=== PATIENT | male | born 1950 | race Caucasian/White ===

== ENCOUNTER 2020-04-22 16:05 | Outpatient (CLI) | payer MEDICARE, SELFPAY ==
--- NOTE | ~2020-04-22 | XR_ITS ---
EXAMINATION: XR cervical spine 4-5V DATE: 04/22/2020 16:39 INDICATION: Neck pain. Numbness and tingling down the left arm. TECHNIQUE: 4 views of cervical spine were obtained. COMPARISON: None. FINDINGS: There is 5 degrees levocurvature of cervicothoracic spine. Vertebral body heights are yvette l. There is moderately decreased disc height at C4-C5 and severely decreased disc height at C5-C6 and C6-C7. There is multilevel uncovertebral joint osteoarthritis, severe bilaterally at C4-C5 and C5-C6 . The uncovertebral joints are not well profiled at C6-C7. There is multilevel facet joint osteoarthr itis, moderate on the right at C3-C4. There is developmental osseous central canal stenosis from C3 t o C6. There is mild central canal stenosis at C4-C5, C5-C6, and C6-C7. No prevertebral soft tissue sw elling. IMPRESSION: 1. Severe cervical spondylosis. Reviewed, dictated and finalized at location A.
== END 2020-04-22 16:06 | disposition home or self-care (01) ==
PROVIDERS: PCP Family Medicine; Visit Provider Nurse Practitioner Family
DX: M47.892 Other spondylosis, cervical region (principal)
CPT/HCPCS: 72050

== ENCOUNTER 2020-04-23 08:53 | Outpatient (CLI) | payer MEDICARE, SELFPAY ==
[2020-04-23 09:33] LABS: Basophils Percent Auto 0.4 % (0.2-1.2); Eosinophils Absolute Auto 0.4 K/mm3 (0-0.3); Eosinophils Percent Auto 4.7 % (0-4.4); Hematocrit 39.9 % (42.0-52.0); Hemoglobin 13.1 g/dL (14.0-18.0); Immature Granulocyte Absolute 0.03 K/mm3 (0.00-0.031); Immature Granulocyte Percent A 0.4 % (0-0.5); Lymphocytes Absolute Auto 2.63 K/mm3 (0.9-3.2); Lymphocytes Percent Auto 35.6 % (18.3-44.2); Mean Corpuscular HGB Conc 32.8 g/dl (32-36); Mean Corpuscular Hemoglobin 31.4 pg (26-34); Mean Corpuscular Volume 95.7 fl (80-100); Mean Platelet Volume 11.1 fl (7.4-10.4); Monocytes Absolute Auto 0.6 K/mm3 (0.1-0.6); Monocytes Percent Auto 8.5 % (2.6-8.5); Neutrophils Absolute Auto 3.7 K/mm3 (1.3-6.7); Neutrophils Percent Auto 50.4 % (45.5-73.1); Platelet Count Result 242 k/mm3 (150-375); Red Blood Count 4.17 M/mm3 (4.6-6.20); Red Cell Distribution Width 13.6 % (11.5-14.5); White Blood Count 7.4 K/mm3 (4.5-10.0)
[2020-04-23 10:06] LABS: Alanine Aminotransferase 22 U/L (4-50); Alkaline Phosphatase 72 U/L (38-126); Aspartate Amino Transferase 22 U/L (17-59); Bilirubin,Total 0.2 mg/dL (0.2-1.3); Blood Urea Nitrogen 27 mg/dL (9-20); Calcium 8.9 mg/dL (8.4-10.2); Carbon Dioxide 27 mmol/L (22-30); Chloride 105 mmol/L (98-107); Cholesterol 160 mg/dL (0-200); Estimated Glomerular Filt Rate 55; Glucose 109 mg/dL (75-110); HDL Direct 33 mg/dL; LDL Cholesterol Direct 96 mg/dL; Potassium 4.3 mmol/L (3.4-5.0); Sodium 138 mmol/L (137-145); Triglycerides 209 mg/dL (<150)
[2020-04-23 10:13] LABS: Creatinine Urine 238.9 mg/dL
[2020-04-23 10:18] LABS: MALB Creatinine Ratio 7.5 mg/g (0-30)
[2020-04-23 10:28] LABS: Free T4 Free Thyroxine 0.71 ng/mL (0.78-2.19); Prostate Specific Antigen 1.8 ng/mL (< OR = 4.0); Total Triiodothyronine (T3) 1.15 NG/ML (0.97-1.69); Vitamin D 25 Hydroxy 33.6 ng/mL
== END 2020-04-23 08:54 | disposition home or self-care (01) ==
PROVIDERS: PCP Family Medicine; Visit Provider Nurse Practitioner Family
DX: E78.5 Hyperlipidemia, unspecified (principal); R53.83 Other fatigue; Z12.5 Encounter for screening for malignant neoplasm of prostate; N18.9 Chronic kidney disease, unspecified; I12.9 Hypertensive chronic kidney disease with stage 1 through stage 4 chronic kidney disease, or unspecified chronic kidney disease; E55.9 Vitamin D deficiency, unspecified; R80.9 Proteinuria, unspecified
CPT/HCPCS: 36415; 80053; 80061; 82043; 82306; 84153; 84439; 84443; 84480; 85025; G0103

== ENCOUNTER → 2020-05-08 13:03 | Outpatient (CLI) | payer MEDICARE, SELFPAY ==
--- NOTE | ~2020-05-08 | MR_ITS ---
EXAMINATION: MR cervical spine [facility] EXAM DATE: 05/08/2020 13:55 INDICATION: Neck pain, posterior head pain, bilateral shoulder pain, left arm numbness and tingling. TECHNIQUE: Multi-sequential, multiplanar MR images of the cervical spine were obtained without contra st. Axial T2, axial T2 MERGE sequence. Sagittal T1, T2, T2 fat saturation images also obtained. Th ere is no prior study for comparison. FINDINGS: There is moderate disc disease C4-C7. The vertebral bodies are aligned in the AP dimension . The spinal cord signal intensity and intrinsic morphology is normal. Cervicomedullary junction is n ormal in appearance. There are no suspicious marrow signal abnormalities. Paraspinal soft tissue is u nremarkable. Level by level evaluation: C2-C3: Disc does not extend beyond the endplate margin. Uncovertebral joint arthropathy: Mild to moderate left, mild right. Facet joint arthropathy: Moderate to severe left, mild to moderate right. Neural foraminal stenosis: Moderate to severe left, mild right. Central canal stenosis: No stenosis. C3-C4: There is a mild diffuse disc bulge. Uncovertebral joint arthropathy: Moderate right, mild to moderate left. Facet joint arthropathy: Moderate bilateral. Neural foraminal stenosis: Moderate bilateral. Central canal stenosis: No stenosis. C4-C5: There is a mild diffuse disc bulge. Uncovertebral joint arthropathy: Moderate to severe right, moderate left. Facet joint arthropathy: Moderate to severe bilateral. Neural foraminal stenosis: Moderate bilateral. Central canal stenosis: Mild. C5-C6: There is a mild diffuse disc bulge. Uncovertebral joint arthropathy: Severe bilateral. Facet joint arthropathy: Moderate bilateral. Neural foraminal stenosis: Moderate to severe bilateral. Central canal stenosis: Mild. C6-C7: There is a mild diffuse disc bulge. Uncovertebral joint arthropathy: Severe bilateral. Facet joint arthropathy: Moderate bilateral. Neural foraminal stenosis: Severe bilateral. Central canal stenosis: Mild. C7-T1: Disc does not extend beyond the endplate margin. Uncovertebral joint arthropathy: Moderate left, mild to moderate right. Facet joint arthropathy: Mild to moderate bilateral. Neural foraminal stenosis: Mild bilateral. Central canal stenosis: No stenosis. IMPRESSION: 1. Advanced cervical arthropathy causing significant multilevel neural foraminal stenosis. Reviewed, dictated and finalized at location A. IMPRESSION: 1. Advanced cervical arthropathy causing significant multilevel neural foramin al stenosis.
== END ==
PROVIDERS: PCP Family Medicine; Visit Provider Family Medicine
DX: M47.892 Other spondylosis, cervical region (principal)
CPT/HCPCS: 72141

== ENCOUNTER 2020-05-21 11:38 | Observation (INO) | payer MEDICARE, SELFPAY ==
[2020-05-21] VITALS (14 sets, daily range): BP systolic 106–192; BP diastolic 75–122; PULSE 54–115; RESP 16–20; TEMP 36.6–36.7; O2SAT 71–100; BMI 30.5
--- NOTE | ~2020-05-21 | XR_ITS ---
EXAMINATION: XR chest 2V DATE: 05/21/2020 12:17 INDICATION: Hypertension. Shortness of breath. TECHNIQUE: PA and lateral views of the chest were obtained. COMPARISON: None FINDINGS: Small calcified nodule at the right lower lung zone consistent with old granulomatous disease. No pul monary edema, pleural effusion or pneumothorax. The cardiomediastinal silhouette is normal. Atheroscl erotic calcifications along the coronary arteries and thoracic aorta with change of prior coronary ar jerardo stenting. Mild thoracic spondylosis with minimal anterior wedging of a couple mid thoracic verte bral bodies. IMPRESSION: 1. No acute cardiopulmonary disease. Reviewed, dictated and finalized at location A.
--- NOTE | ~2020-05-21 | CT_ITS ---
EXAMINATION: CTA brain carotid DATE: 05/21/2020 13:41 INDICATION: Tinnitus. Dizziness. TECHNIQUE: Computed tomographic angiography (CTA) of the head was performed without and with 100 mL O mnipaque-350 intravenous contrast. CTA of the neck was performed with intravenous contrast. Automated exposure control and iterative reconstruction technique were employed. The dose-length product was 1 812.39 mGy-cm. Maximum intensity projection and volume rendered 3D-reconstructions were created by benigno hough technologist on a separate workstation. COMPARISON: None. FINDINGS: HEAD CTA: There are scattered areas of low attenuation in the cerebral white matter, which is within normal limits for the patient's age. There is no intracranial hemorrhage, acute infarction, or abnorm al intracranial mass lesion. The ventricles are normal in size. There is mucosal thickening in the pa ranasal sinuses. The orbits are normal. There are old fracture deformities of the nasal bones and lef t nasal process of maxilla. The mastoid air cells are normal. The orbits are normal. The vertebral ar teries are codominant. There is no significant stenosis of basilar artery or the posterior cerebral a rteries. There is no significant stenosis of the intracranial internal carotid arteries or anterior o r middle cerebral arteries. Anterior communicating artery is normal. The posterior to indicating cherelle antonietta are normal. There is no aneurysm. NECK CTA: There is mild emphysema. There are no pathologically enlarged lymph nodes. There is moderat e stenosis of the origins of the vertebral arteries. There is plaque in the proximal internal carotid arteries. There is 34% stenosis of the proximal right internal carotid artery relative to normal dis tamiko artery lumen diameter (NASCET criteria). There is 0% stenosis of the proximal left internal carot id artery relative to normal distal artery lumen diameter. There is severe cervical spondylosis. IMPRESSION: 1. Normal aging brain. 2. No aneurysm or significant intracranial arterial stenosis. 3. 34% stenosis of the proximal right internal carotid artery relative to normal distal artery lumen diameter (NASCET criteria). 4. 0% stenosis of the proximal left internal carotid artery relative to normal distal artery lumen di ameter. Reviewed, dictated and finalized at location A. IMPRESSION: 1. Normal aging brain. 2. No aneurysm or significant intracranial arterial stenosis. 3. 34% stenosis of the proximal right internal carotid artery relative to yvette l distal artery lumen diameter (NASCET criteria). 4. 0% stenosis of the proximal left internal carotid artery relative to normal distal artery lumen diameter.
--- NOTE | ~2020-05-21 | US_ITS ---
EXAMINATION: US venous doppler [facility] DATE: 05/21/2020 13:30 INDICATION: Shortness of breath and lower limb pain TECHNIQUE: Grayscale ultrasound images without and with compression and Doppler ultrasound images of the bilateral lower extremity veins were obtained. COMPARISON: None. FINDINGS: The visualized portions of right common femoral vein, profunda (deep) femoral vein, femoral vein, pop liteal vein, posterior tibial veins, peroneal veins, gastrocnemius vein and greater saphenous vein ou tflow are patent. The visualized portions of left common femoral vein, profunda femoral vein, femoral vein, popliteal v ein, posterior tibial veins, peroneal veins, gastrocnemius vein and greater saphenous vein outflow ar e patent. IMPRESSION: 1. No deep venous thrombosis in either lower limb. Reviewed, dictated and finalized at location A.
--- NOTE | ~2020-05-21 | CT_ITS ---
EXAMINATION: CTA chest PE protocol DATE: 05/21/2020 16:36 CDT INDICATION: Shortness of breath. Elevated d-dimer. TECHNIQUE: Computed tomographic angiography (CTA) of the chest was performed with 100 mL Omnipaque-35 0 intravenous contrast. The dose-length product was 1003.59 mGy-cm. Maximum intensity projection 3D-r econstructions of the aorta and other arteries were constructed by the technologist on a separate wor kstation. COMPARISON: Chest dated 05/21/2020 FINDINGS: The study is technically adequate without evidence for pulmonary embolism. Heart size yvette l. No significant pleural or pericardial effusion. There is atherosclerosis of the aorta without aneu rysm or dissection. No lymphadenopathy. There is severe right renal atrophy with multiple low density lesions, likely cysts. There is prominent right perinephric stranding. Cannot exclude pyelonephritis . There are nonobstructing left renal stones there are extensive left renal arterial calcifications. No focal airspace consolidation. No endobronchial lesions. No pneumothorax. Moderate thoracic spondyl osis with accentuated kyphosis. Sclerotic lesion in T11, likely bone island. IMPRESSION: 1. No evidence for pulmonary embolism. No acute cardiopulmonary disease. 2: Severe right renal atrophy with moderate perinephric stranding. Cannot exclude pyelonephritis. 3: Nonobstructing left nephrolithiasis. Reviewed, dictated and finalized at location A. IMPRESSION: 1. No evidence for pulmonary embolism. No acute cardiopulmonary disease. 2: Severe right renal atrophy with moderate perinephric stranding. Cannot exclu de pyelonephritis. 3: Nonobstructing left nephrolithiasis.
--- NOTE | 2020-05-21 11:50 | ECG_ITS ---
Measurements Intervals [place] Rate: 57 P: 28 HI: 188 QRS: 2 QRSD: 120 T: 57 QT: 393 QTc: 385 Interpretive Statements SINUS BRADYCARDIA VENTRICULAR PREMATURE COMPLEX INTRAVENTRICULAR CONDUCTION DELAY BASELINE WANDER- V4-V6 BORDERLINE ECG Electronically Signed On 05-21-2020 11:59:21 CDT by Destin Hutson D.O.
[2020-05-21 12:04] LABS: Basophils Percent Auto 0.4 % (0.2-1.2); Eosinophils Absolute Auto 0.2 K/mm3 (0-0.3); Eosinophils Percent Auto 2.9 % (0-4.4); Hematocrit 41.6 % (42.0-52.0); Hemoglobin 13.7 g/dL (14.0-18.0); Immature Granulocyte Absolute 0.04 K/mm3 (0.00-0.031); Immature Granulocyte Percent A 0.5 % (0-0.5); Lymphocytes Absolute Auto 2.13 K/mm3 (0.9-3.2); Lymphocytes Percent Auto 26.7 % (18.3-44.2); Mean Corpuscular HGB Conc 32.9 g/dl (32-36); Mean Corpuscular Hemoglobin 31.4 pg (26-34); Mean Corpuscular Volume 95.2 fl (80-100); Mean Platelet Volume 11.3 fl (7.4-10.4); Monocytes Absolute Auto 0.7 K/mm3 (0.1-0.6); Monocytes Percent Auto 8.6 % (2.6-8.5); Neutrophils Absolute Auto 4.9 K/mm3 (1.3-6.7); Neutrophils Percent Auto 60.9 % (45.5-73.1); Platelet Count Result 239 k/mm3 (150-375); Red Blood Count 4.37 M/mm3 (4.6-6.20); Red Cell Distribution Width 13.2 % (11.5-14.5)
[2020-05-21 12:21] LABS: Blood Urea Nitrogen 18 mg/dL (9-20); Calcium 9.5 mg/dL (8.4-10.2); Carbon Dioxide 27 mmol/L (22-30); Chloride 105 mmol/L (98-107); Estimated CRCL calculation 75 ml/min; Estimated Glomerular Filt Rate > 60; Glucose 116 mg/dL (75-110); Potassium 4.9 mmol/L (3.4-5.0); Sodium 139 mmol/L (137-145)
[2020-05-21 12:33] LABS: Troponin I < 0.012 ng/mL (0.000-0.034)
[2020-05-21 12:34] LABS: INR 0.9; Partial Thromboplastin Time 27.1 SECONDS (22.3-36.8); Prothrombin Time 12.2 Seconds (11.1-14.7)
[2020-05-21 12:37] LABS: D Dimer 0.98 ug/mL (<0.48)
[2020-05-21 12:46] LABS: NT Pro B Type Natriuretic Pept 295 PG/ML (5-100)
--- NOTE | 2020-05-21 13:25 | ED.SOB ---
HPI - SOB/Dyspnea General Chief Complaint: Shortness of Breath/Dyspnea <ZEENAT Corral Last Filed: 05/21/20 18:45> Stated Complaint: SOB <ZEENAT Corral Last Filed: 05/21/20 18:45> Time Seen by Provider: 05/21/20 11:51 <ZEENAT Corral Last Filed: 05/21/20 18:45> Source: patient <ZEENAT Corral Last Filed: 05/21/20 18:45> Mode of arrival: ambulatory <ZEENAT Corral Last Filed: 05/21/20 18:45> Limitations: no limitations <ZEENAT Corral Last Filed: 05/21/20 18:45> History of Present Illness HPI Narrative: This is a 69 year old male that presents to the ER for shortness of breath x 3 weeks. Also reports tinnitus in the left ear that resolves when he turns his head. Reports intermittent dizziness. Reports some blurry vision on the left which resolved. Reports he has had tingling on the left side of his body. Reports swelling in his ankles. Denies fever, chest pain, abdominal pain, vomiting, numbness, or dysuria. <ZEEANT Corral Last Filed: 05/21/20 18:45> Related Data Home Medications: Home Medications Medication Instructions Recorded Confirmed clopidogrel 05/21/20 05/21/20 isosorbide mononitrate mg PO 05/21/20 lisinopril 05/21/20 metoprolol tartrate 05/21/20 pantoprazole PO 05/21/20 paroxetine HCl mg PO 05/21/20 rosuvastatin mg 05/21/20 tamsulosin mg PO 05/21/20 tramadol mg 05/21/20 <ZEENAT Corral Last Filed: 05/21/20 18:45> Allergies/Adverse Reactions: Allergies Allergy/AdvReac Type Severity Reaction Status Date / Time shellfish derived Allergy Hives Verified 09/21/19 10:46 <ZEENAT Corral Last Filed: 05/21/20 18:45> Review of Systems Review of Systems: Narrative: CONSTITUTIONAL: Denies fever EYES: Reports visual changes CARDIOVASCULAR: Reports edema. Denies chest pain RESPIRATORY: Reports dyspnea. Denies cough GASTROINTESTINAL: Denies abdominal pain, nausea, vomiting GENITOURINARY: Denies dysuria or hematuria. MUSCULOSKELETAL: Reports back pain, joint pain, and myalgia. NEUROLOGIC: Denies headache, numbness, or weakness. <Marj Wayne PA-C - Last Filed: 05/21/20 18:45> All systems reviewed & are unremarkable except as noted in HPI and below <Marj Wayne PA-C - Last Filed: 05/21/20 18:45> PMFSH Past Medical History Medical History: Medical History (Updated 05/21/20 @ 18:45 by Marj Wayne PA-C) History of arthritis History of coronary artery disease History of gastroesophageal reflux (GERD) History of hyperlipidemia <Marj Wayne PA-C - Last Filed: 05/21/20 18:45> Surgical History Surgical History: Surgical History (Updated 09/21/19 @ 11:01 by Floyd Pierson PA-C) History of orthopedic surgery <Marj Wayne PA-C - Last Filed: 05/21/20 18:45> Social History Social History: Social History (Updated 09/21/19 @ 11:02 by Floyd Pierson PA-C) Smoking status: Current some day smoker Gender identity (if verbalized by the patient): Male <Marj Wayne PA-C - Last Filed: 05/21/20 18:45> Exam Narrative: Exam Narrative: GENERAL: Well-appearing, well-nourished, and in no acute distress. HEAD: Normocephalic, atraumatic. EYES: PERRLA and EOMI. ENT: Nares clear, no rhinorrhea or epistaxis. Mucous membranes moist. Oropharynx without tonsillar hypertrophy exudate or other lesions. Bilateral TMs pearly thompson non-bulging NECK: Supple. No adenopathy or masses. No carotid bruits or JVD CHEST: Clear to auscultation. No respiratory distress. No wheezes rales or rhonchi HEART: Regular rate and rhythm. No murmur heard. ABDOMEN: Soft, nontender, nondistended, normal active bowel sounds. EXTREMITIES: Normal range of motion. No edema. DP pulses palpable, but diminished SKIN: Warm, dry, no rash. NEURO: No focal deficits. Alert and oriented x3. CN II-XII grossly intact. Normal heel to funez PSYCH: Normal mood and affect <Gini
--- NOTE | 2020-05-21 13:55 | PC.NURSE ---
pt back from CT and US. Resting in room, denies need at this time. Pt updated on plan of care and timing of test results. verbalized understanding.
[2020-05-21] MEDS: hydrALAZINE HCL 20 MG/ML VIAL IV PUSH ×2 (14:45→17:49)
[2020-05-21] MEDS: SODIUM CHLORIDE 0.9% IV 1,000 ML 999 ML IV CONT (16:41)
[2020-05-21 17:08] LABS: Add Urine Microscopic? NO; Appearance Urine Clear (Clear); Bilirubin Urine Negative (Negative); Blood Urine Negative (Negative); Color Urine Straw (Yellow); Glucose Urine UA Negative (Negative); Ketones Urine Negative (Negative); Leukocyte Esterase Ur Negative LEU/UL (Negative); Nitrate Urine Negative (Negative); Protein Urine Negative (Negative); Specific Grav Ur 1.026 (1.001-1.035); Urobilinogen Urine Negative mg/dL (<2.0)
--- NOTE | 2020-05-21 18:15 | PC.NURSE ---
RN at bedside - Pt ambulatory down the currie for continuous pulse ox. .Pt did have a desat down to 83 then returned to 98% when returned to the bed.
--- NOTE | 2020-05-21 18:18 | PC.NURSE ---
ERP MALENA Ash notified of patient desat during ambulation.
[2020-05-21 19:01] LABS: Alveolar/Arterial O2 Gradient 33.3 mmHg; Base Excess ABG -1.3 mEq/l (+/-2.0); Carboxyhemoglobin 0.7 % THb (0-2.0); Fractional Inspired Oxygen 21 %; HCO3 ABG 20.5 mEq/l (22.0-26.0); Methemoglobin ABG 0.1 %THb (0-1.5); Oxygen Content ABG 20.2 %vol (16.0-22.0); Oxygen Saturation ABG 97.1 % (95.0-100.0); Oxyhemoglobin 95.6 % THb (90.0-100.0); PCO2 ABG 27.5 mmHg (35.0-45.0); PO2 ABG 83.5 mmHg (80.0-100.0); PO2 FiO2 Ratio Arterial Blood 3.98 %; Reduced Hemoglobin 3.6 %THb (0-5.0); Site Drawn RIGHT RADIAL; pH ABG 7.491 (7.350-7.450)
[2020-05-21 19:02] LABS: Device ROOM AIR; Modified Allen's Test Pass
[2020-05-21] MEDS: ONDANSETRON INJ 4 MG/2 ML VIAL IV PUSH (19:28)
--- NOTE | 2020-05-21 19:53 | PM.IMHP ---
H&P: HPI History of Present Illness Chief complaint: Shortness of breath Narrative: Date and time of patient contact: 05/21/2020 at 8:45 p.m. Burt Tate Jr. is a 69 year old male with a past medical history of coronary artery disease and chronic tobacco abuse who presented to the ER with multiple complaints. The patient tells me that the main reason came into the ER was because his blood pressure was 243/160. He had checked his blood pressure because he was feeling short of breath. He was also having a sensation of lightheadedness. He denies having any chest pain or palpitations. He has noticed that his legs have been swollen for the last several months but his swelling has improved today. He does admit that he ran out of Plavix 3 days ago. And he has also out of at least 1 of his blood pressure medications at home. He reports that he receives his medications by mail order, and for whatever reason these medications were missing from the delivery. He has noticed for the last several days that he has been having intermittent shortness of breath. He reports that it feels as if he cannot get a deep breath. Or he feels as if the breath his stuck in his chest. This sensation usually only last a couple of minutes. It occurs while he is at rest. He also reports waking up in the middle of the night due to a sensation of ?developing fever?. He reports that he was slightly sweaty and hot. The sensation lasted several minutes but then resolved. He did not measure a temperature. He has not been having any cough or congestion. He denies any recent ill contacts. The ER staff stated that the patient was tearful through most of his time in the ER. The patient denied any depression symptoms or anxiety at the time of my evaluation. He told the ER staff that he was recently started on a new antidepressant. However he did not mention this at the time of my evaluation. Upon review of external med history the patient has been on Paxil 40 mg since 2018. He also reported intermittent episodes of left facial tingling, pain down into his left shoulder, pain rating up into his left ear, intermittent ringing in his left ear, and intermittent visual changes. He reports that his visual changes would only occur in last for few seconds and only in the left eye. He has not had any visual changes in several weeks. He reports that he only has pain in his left shoulder left neck and left facial symptoms if he is holding his neck to the left side. His symptoms improve if he bends his neck to the right side. He has not had any difficulty with speech. He occasionally has difficulty a sensation of globus. He reports he had an EGD about 4 years ago and denies any history of ulcers or abnormalities of the esophagus. He is on Protonix daily. He reports that he cannot lay flat for very long due to GERD symptoms. He denies any orthopnea or paroxysmal nocturnal dyspnea. He has been having symptoms of intermittent claudication in his calves. He was evaluated by Dr. Barrientos recently who recommended peripheral angiogram but the patient deferred this for later time. He had a nuclear stress test about a year ago that was reportedly negative. 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 He has rescheduled multiple appointments. The patient's med rec listed below has not been verified. Review of Systems Review of Systems: Narrative: 12 systems were reviewed with pertinent positives and negatives per HPI. Except as documented in the HPI, all other systems were reviewed and are negative. [facility] Past Medical History Medical History (Updated 05/21/20 @ 22:45 by Chantal Walter DO) Arthropathy of cervical spine Advanced cervical arthropathy noted on MRI 05/09/2020 demonstrating significant multilevel neuroforaminal stenosis exam performed due to left arm tingling in bilateral shoulder pain Benign prostatic hyperplasia History of arthritis History of cor
--- NOTE | 2020-05-21 20:52 | PC.NURSE ---
This patient, Burt Tate Jr., was admitted to Medical Room 247-. Patient/family oriented to hospital policies and general routines including ID bracelet, bed and alarms, visiting hours, pain management, procedures, bathroom and other care routines, personal items, smoking policy, room service/diet, and visiting hours. Valuables list has been completed. Information on how to activate the Rapid Response Team has been discussed. Patient/Family are encouraged to report perceived risks to care and to ask questions if they do not understand what they are told or what they should do.
[2020-05-21] MEDS: METOPROLOL TARTRATE 25 MG TABLET PO (23:46)
[2020-05-21] MEDS: CLOPIDOGREL BISULFATE 75 MG TABLET PO (23:46)
[2020-05-22] VITALS (8 sets, daily range): BP systolic 153; BP diastolic 81; PULSE 60–105; RESP 20; TEMP 36.3; O2SAT 90–98
--- NOTE | 2020-05-22 09:57 | HOMEO2EVAL ---
Home Oxygen Evaluation RC: Home Oxygen (O2) Evaluation Start: 05/22/20 07:13 Freq: ONCE Status: Active Protocol: RPE Activity Type Activity Date Activity User E-Sign Co-Sign Detail Recorded Client Recorded Date Recorded By Document 05/22/20 09:15 CHENCHO [id number] 05/22/20 09:57 CHENCHO Document 05/22/20 09:20 CHENCHO [id number] 05/22/20 09:57 CHENCHO Document 05/22/20 09:30 CHENCHO [id number] 05/22/20 09:57 CHENCHO 05/22/20 05/22/20 05/22/20 09:15 09:20 09:30 Home O2 Evaluation Test Phase Resting Exercise Resting Oxygen Delivery Room Air Room Air Room Air Pulse Oximetry (90-100 %) 96 90 96 Pulse Rate (60-100 beats/min) 74 105 H 72 Ambulation Distance (feet) 200 Home Oxygen Evaluation Comments NO HOME O2 NEEDED AT THIS TIME. Treatment Charges O2 Evaluation
--- NOTE | 2020-05-22 09:57 | PCRCNOTE ---
HOME O2 EVAL COMPLETED. NO HOME O2 NEEDED.
--- NOTE | 2020-05-22 10:00 | ECHO_ITS ---
Patient Info Name: Burt Tate Age: 69 years : 1950 Gender: Male Ht: 74 in Wt: 243 lbs BSA: 2.43 m2 HR: 70 bpm BP: 153 / 81 mmHg Heart Rhythm: Sinus Rhythm Technical Quality: Good Exam Date: 05/22/2020 11:01 AM Exam Location: [facility] Patient Status: Outpatient Admit Date: 05/21/2020 Staff Ordering Physician: Chantal Walter DO Visitor Services Information Assistant: El Ross RDCS Attending Provider: Viky Iyer PA-C Referring Physician: Saba SANCHEZ; Exam Type: CA echo doppler color flow Study Info Indications R60.9 - Edema, unspecified Complete two-dimensional, color flow and Doppler transthoracic echocardiogram is performed. Strain analysis performed. History/Risk Factors Hypoxia, Edema, CAD w/ stents x2, HTN, SOB. Summary 1. Left ventricular chamber dimension is mildly enlarged. 2. Left ventricular systolic function is normal, estimated at 60-65%. 3. The left ventricular diastolic function is grade I diastolic dysfunction. 4. E/e' 6 is not elevated. 5. Global longitudinal strain is normal at -19.6%. 6. Left atrial chamber dimension is mildly enlarged. 7. There is mild aortic valve sclerosis. 8. The mitral valve has mildly calcified annulus. Left Ventricle E/e' 6 is not elevated. Global longitudinal strain is normal at -19.6%. Left ventricular chamber dimension is mildly enlarged. Left ventricular systolic function is normal, estimated at 60-65%. The left ventricular diastolic function is grade I diastolic dysfunction. Right Ventricle Right ventricular chamber dimension is normal. Right ventricular systolic function is normal. Left Atria Left atrial chamber dimension is mildly enlarged. Right Atria Right atrial chamber dimension is normal. Aortic Valve The aortic valve is trileaflet. There is mild aortic valve sclerosis. There is no aortic valve stenosis. There is no aortic valve regurgitation. Pulmonic Valve There is no pulmonic regurgitation. Mitral Valve The mitral valve has mildly calcified annulus. There is no mitral valve stenosis. There is no mitral valve regurgitation. Tricuspid Valve There is no tricuspid valve regurgitation. Pericardium/Pleural There is no pericardial effusion. Inferior Vena Cava Normal inferior vena cava with >50% collapse upon inspiration consistent with normal right atrial pressure, 5 mmHg. Aorta The aortic root size at the sinus of Valsalva is normal. Left Ventricular Outflow Tract Name Value Normal LVOT 2D LVOT Diameter 2.2 cm LVOT Doppler LVOT Peak Gradient 5 mmHg LVOT Mean Gradient 2 mmHg LVOT VTI 19 cm LVOT VTI/AV VTI Ratio 0.6 LVOT Stroke Volume 73 ml LVOT CO 4.9 l/min LVOT CI 2.0 l/min/m2 Mitral Valve Name Value Normal
[2020-05-22] MEDS: ASPIRIN 81 MG ENTERIC TABLET BY MOUTH (10:40)
[2020-05-22] MEDS: PANTOPRAZOLE 40 MG TABLET PO (10:40)
[2020-05-22] MEDS: lisinopriL 20 MG TABLET PO (10:40)
[2020-05-22] MEDS: METOPROLOL TARTRATE 25 MG TABLET PO (10:40)
[2020-05-22] MEDS: PARoxetine 20 MG TABLET 40 MG PO (10:40)
[2020-05-22] MEDS: TAMSULOSIN HCL 0.4 MG CAPSULE PO (10:41)
[2020-05-22] MEDS: ISOSORBIDE MONONITRATE 60 MG TAB.ER.24H PO (10:41)
[2020-05-22] MEDS: ROSUVASTATIN 10 MG TABLET 40 MG PO (10:41)
[2020-05-22] MEDS: ENOXAPARIN 40 MG/0.4 ML SYRINGE SUB-Q (10:42)
--- NOTE | 2020-05-22 11:20 | PC.NURSE ---
Patient refused MRI today. States he had neck pain and also had claustrophobia issues due to having to wear a mask in the machine. Notified Viky GUY that test was not completed. Patient also refuses to have his telemetry placed back on after his procedure. Notified Viky that patient is wanting to go home and refusing to have his monitor put back on.
--- NOTE | 2020-05-22 11:55 | PC.NURSE ---
Patient asking to be discharged. I have notified Viky GUY that patient is requesting to leave. Discussed MRI further with patient and he states he will not agree to have it done no matter what meds are ordered to be given. Patient also states he had run out of his blood thinner and his BP meds prior to coming in but he has ordered all of them and has them now. I explained to patient that Viky will be up to assess him shortly and patient states he wants to sign out AMA. I convinced him to allow me to call Viky to see if she can come to see him and discuss the need for the ordered tests, etc and he has agreed that I can call and tell her but he states he will leave AMA if she cannot come soon. Called and left a voice message for Viky telling her the same.
--- NOTE | 2020-05-22 13:26 | PM.DS ---
DS: Admitting Diagnosis Admitting Diagnosis Admitting Diagnosis: Shortness of breath DS: Discharge Diagnosis Discharge Diagnosis (1) Shortness of breath: Code(s): R06.02 - Shortness of breath Status: Acute (2) Hypoxia: Code(s): R09.02 - Hypoxemia Status: Acute (3) Hypertension: Qualifiers: Hypertension type: unspecified Qualified Code(s): I10 - Essential (primary) hypertension Code(s): I10 - Essential (primary) hypertension Status: Acute (4) Facial paresthesia: Code(s): R20.2 - Paresthesia of skin Status: Acute DS: Summary Hospital Course Reason for hospitalization: Patient is a 69-year-old man with a past medical history of coronary artery disease, who presented to the emergency department with elevated blood pressure 243/160. The patient had been out his blood pressure medications for the last 3 days and was trying to get them filled. He had other complaints as well, feeling short of breath, lightheadedness, diaphoresis, numbness and tingling to the left side of his face and into his neck down his left arm. Initial vitals Showed temperature of 98.1?, blood pressure 182/122, heart rate 60, respiratory rate 20, oxygen saturation 97% on room air. Labs showed normal CBC with differential other than slight normocytic anemia with a hemoglobin of 13.7/hematocrit 41.6. Elevated D-dimer at 0.98. Normal BMP. BNP was 295. Normal troponin. Normal urinalysis. Chest x-ray showed No acute cardiopulmonary disease. Venous Doppler showed no DVT bilaterally. CTA head neck showed normal aging brain, no aneurysm or significant intracranial arterial stenosis. 36% stenosis of proximal right internal carotid artery. CTA chest showed no evidence of PE or acute cardiopulmonary disease. Severe right renal atrophy with moderate perinephritic stranding, cannot exclude pyelonephritis. Patient was admitted overnight for further stroke workup which included an MRI, echocardiogram and monitoring him on telemetry. We restarted him back on his home medications that he had missed for the last 3 days and monitor his blood pressure. The next day the patient refused his MRI due to having some claustrophobia with the machine. He told me did not want the MRI in states this numbness and tingling to the side of his face are related to an old injury with his neck and is nothing that is new use not have any other stroke-like symptoms. Echocardiogram was completed which showed mildly enlarged left ventricular chamber, normal systolic function with an EF of 60-65%. Diastolic dysfunction grade 1. Blood pressure was improved after taking his home medications and wanted to be discharged home did not want any further workup to be completed. On my examination he had no neurologic defects and was feeling back to his baseline and I discharge him home to follow-up with his primary care provider. He stated that all of his medications that he had missed for the last 3 days were waiting for him at the pharmacy and he did not knee me to fill any other medications for him other than his tamsulosin which I did. Status at Discharge Cognitive/behavioral status at discharge: Stable, improved. Time Spent with Patient Time attestation: Total time spent providing and/or coordinating discharge services: Time spent: Greater than 30 minutes Exam Narrative: Exam Narrative: General: 69-year-old man walking around the room. Appears comfortable. In no acute distress. Skin: No jaundice or cyanosis. Good skin turgor. Neck: Full range of motion. Supple. Nontender. Respiratory: Lungs are clear to auscultation bilaterally. No bony chest wall tenderness. Cardiovascular: The heart has a regular rate and rhythm without murmur. No carotid bruits. Lower extremities: No lower extremity edema. Distal pulses are easily palpated. No calf tenderness to palpation. Gastrointestinal: The abdomen
== END 2020-05-22 13:50 | disposition home or self-care (01) ==
LOC: ANHED 18:48 → ANH2MED 19:51
PROVIDERS: Physician Assistant; Admitting Provider Family Medicine; Emergency Provider Emergency Medicine; PCP Family Medicine; Visit Provider Physician Assistant
DX: R06.02 Shortness of breath (principal); R09.02 Hypoxemia; R20.2 Paresthesia of skin; I25.10 Atherosclerotic heart disease of native coronary artery without angina pectoris; I10 Essential (primary) hypertension; F17.210 Nicotine dependence, cigarettes, uncomplicated; F12.90 Cannabis use, unspecified, uncomplicated
CPT/HCPCS: 36415; 36600; 70496; 70498; 71046; 71275; 80048; 81003; 82375; 82805; 83050; 83880; 84484; 85025; 85380; 85610; 85730; 93005; 93306; 93970; 94618; 96361; 96372; 96374; 96375; 96376; 99285; A9270; G0378; J0360; J1650; J2405; J7030; Q9967

== ENCOUNTER 2020-08-24 11:19 | Outpatient (CLI) | payer MEDICARE, SELFPAY ==
--- NOTE | ~2020-08-24 | XR_ITS ---
EXAMINATION: XR chest 2V DATE: 08/24/2020 12:56 INDICATION: Shortness of breath. TECHNIQUE: Frontal and lateral views of the chest were obtained. COMPARISON: Chest 2 views 05/21/2020, chest CT 05/21/2020 FINDINGS: The chest demonstrates clear lungs without pneumonia, pleural effusion, or pneumothorax. Th e heart size is normal. IMPRESSION: 1. No acute cardiopulmonary disease. Reviewed, dictated and finalized at location A.
[2020-08-24 12:39] LABS: Basophils Percent Auto 0.3 % (0.2-1.2); Eosinophils Absolute Auto 0.4 K/mm3 (0-0.3); Eosinophils Percent Auto 5.1 % (0-4.4); Hematocrit 39.4 % (42.0-52.0); Immature Granulocyte Absolute 0.03 K/mm3 (0.00-0.031); Immature Granulocyte Percent A 0.3 % (0-0.5); Lymphocytes Absolute Auto 2.29 K/mm3 (0.9-3.2); Lymphocytes Percent Auto 26.5 % (18.3-44.2); Mean Corpuscular Hemoglobin 31.7 pg (26-34); Mean Corpuscular Volume 96.1 fl (80-100); Mean Platelet Volume 10.8 fl (7.4-10.4); Monocytes Absolute Auto 0.8 K/mm3 (0.1-0.6); Monocytes Percent Auto 8.8 % (2.6-8.5); Neutrophils Absolute Auto 5.1 K/mm3 (1.3-6.7); Platelet Count Result 244 k/mm3 (150-375); Red Cell Distribution Width 13.2 % (11.5-14.5); White Blood Count 8.6 K/mm3 (4.5-10.0)
[2020-08-24 12:51] LABS: Alanine Aminotransferase 24 U/L (4-50); Albumin Level 4.1 g/dL (3.5-5.1); Alkaline Phosphatase 72 U/L (38-126); Anion Gap 8 mmol/L (8-16); Aspartate Amino Transferase 25 U/L (17-59); Bilirubin,Total 0.4 mg/dL (0.2-1.3); Blood Urea Nitrogen 23 mg/dL (9-20); Calcium 9.3 mg/dL (8.4-10.2); Carbon Dioxide 29 mmol/L (22-30); Chloride 101 mmol/L (98-107); Estimated Glomerular Filt Rate 60; Glucose 102 mg/dL (75-110); Potassium 4.9 mmol/L (3.4-5.0); Sodium 138 mmol/L (137-145)
[2020-08-24 12:59] LABS: NT Pro B Type Natriuretic Pept 382 PG/ML (5-100)
== END 2020-08-24 11:20 | disposition home or self-care (01) ==
PROVIDERS: PCP Family Medicine; Visit Provider Nurse Practitioner
DX: R60.9 Edema, unspecified (principal); I12.9 Hypertensive chronic kidney disease with stage 1 through stage 4 chronic kidney disease, or unspecified chronic kidney disease; N18.2 Chronic kidney disease, stage 2 (mild); R06.02 Shortness of breath
CPT/HCPCS: 36415; 71046; 80053; 83735; 83880; 85025

== ENCOUNTER 2021-08-09 09:19 | Outpatient (CLI) | payer MEDICARE, SELFPAY ==
[2021-08-09 09:57] LABS: Basophils Percent Auto 0.3 % (0.2-1.2); Eosinophils Absolute Auto 0.2 K/mm3 (0-0.3); Eosinophils Percent Auto 2.7 % (0-4.4); Hemoglobin 13.4 g/dL (14.0-18.0); Immature Granulocyte Absolute 0.03 K/mm3 (0.00-0.031); Immature Granulocyte Percent A 0.4 % (0-0.5); Lymphocytes Absolute Auto 2.46 K/mm3 (0.9-3.2); Lymphocytes Percent Auto 31.2 % (18.3-44.2); Mean Corpuscular HGB Conc 32.7 g/dl (32-36); Mean Corpuscular Hemoglobin 31.9 pg (26-34); Mean Corpuscular Volume 97.6 fl (80-100); Mean Platelet Volume 11.5 fl (7.4-10.4); Monocytes Absolute Auto 0.7 K/mm3 (0.1-0.6); Monocytes Percent Auto 8.2 % (2.6-8.5); Neutrophils Absolute Auto 4.5 K/mm3 (1.3-6.7); Neutrophils Percent Auto 57.2 % (45.5-73.1); Platelet Count Result 198 k/mm3 (150-375); Red Cell Distribution Width 12.6 % (11.5-14.5); White Blood Count 7.9 K/mm3 (4.5-10.0)
[2021-08-09 10:09] LABS: Alanine Aminotransferase 21 U/L (4-50); Albumin Level 4.1 g/dL (3.5-5.1); Alkaline Phosphatase 76 U/L (38-126); Anion Gap 8 mmol/L (8-16); Aspartate Amino Transferase 22 U/L (17-59); Bilirubin,Total 0.3 mg/dL (0.2-1.3); Blood Urea Nitrogen 28 mg/dL (9-20); Calcium 8.9 mg/dL (8.4-10.2); Carbon Dioxide 26 mmol/L (22-30); Chloride 106 mmol/L (98-107); Cholesterol 146 mg/dL (0-200); Estimated Glomerular Filt Rate 50; Glucose 114 mg/dL (65-110); HDL Direct 36 mg/dL; Potassium 4.4 mmol/L (3.4-5.0); Sodium 140 mmol/L (137-145); Triglycerides 116 mg/dL (<150)
[2021-08-09 10:19] LABS: LDL Cholesterol Direct 89 mg/dL
[2021-08-09 10:41] LABS: Prostate Specific Antigen 2.1 ng/mL (< OR = 4.0)
[2021-08-09 11:04] LABS: Total Triiodothyronine (T3) 0.94 NG/ML (0.97-1.69)
[2021-08-09 11:29] LABS: Free T4 Free Thyroxine 0.76 ng/mL (0.78-2.19); Vitamin D 25 Hydroxy 43.9 ng/mL
[2021-08-09 11:39] LABS: Creatinine Urine 104.3 mg/dL
[2021-08-09 11:44] LABS: MALB Creatinine Ratio 59.3 mg/g (0-30); Microalbumin Urine Random 61.8 mg/L (0-16.7)
[2021-08-09 11:44] LABS: Hepatitis B Surface Antigen Negative (Negative)
[2021-08-09 11:50] LABS: HAV RESULT Negative (Negative); Hepatitis B Core IgM Result Negative (Negative)
[2021-08-09 12:02] LABS: Hepatitis C Virus Antibody Negative (Negative)
== END 2021-08-09 09:20 | disposition home or self-care (01) ==
PROVIDERS: PCP Family Medicine; Visit Provider Nurse Practitioner Family
DX: E55.9 Vitamin D deficiency, unspecified (principal); I50.32 Chronic diastolic (congestive) heart failure; N18.2 Chronic kidney disease, stage 2 (mild); I13.0 Hypertensive heart and chronic kidney disease with heart failure and stage 1 through stage 4 chronic kidney disease, or unspecified chronic kidney disease; N40.1 Benign prostatic hyperplasia with lower urinary tract symptoms; E78.2 Mixed hyperlipidemia; R53.83 Other fatigue; Z11.59 Encounter for screening for other viral diseases; Z12.5 Encounter for screening for malignant neoplasm of prostate
CPT/HCPCS: 36415; 80053; 80061; 80074; 82043; 82306; 84153; 84439; 84443; 84480; 85025; G0103